=== PATIENT | female | born 1980 | race African-American/Black ===

== ENCOUNTER 2017-01-25 09:30 | Emergency (ER) | payer OTHER ==
[~2017-01-25] VITALS: Ht 165.1 cm; Wt 70.0 kg
[2017-01-25 09:38] VITALS: Ht 165.1 cm; Wt 70.0 kg
[2017-01-25 11:15] VITALS: BP 113/62; PULSE 97; RESP 19; TEMP 98.3
--- NOTE | 2017-01-25 11:24 | ERD ---
ER Documentation Chief Complaint Chief Complaint BIB RA FOR EVAL OF DRUGH USE COCAINE. STATES "FEELS WEIRD" HPI This is a 36-year-old female with a known history of schizophrenia that presents to the emergency department stating she feels very anxious and "weird" after using cocaine. She stated she snorted the cocaine and uses this on a regular basis but felt that this was "a bad batch." Of cocaine. She denies any auditory tactile visual hallucinations. She denies any suicidal homicidal thoughts or ideation. She states she would like to speak to a social security assessor for drug rehabilitation. She denies a headache. She denies any chest pain or pressure that radiates to the neck arm back or jaw. She denied any hemoptysis hematemesis or melanotic stools and has no shortness of breath at rest or exertion ROS All systems reviewed and are negative except as per history of present illness. PMhx/Soc Hx Miscellaneous Medical Probl: Yes (HIV + COCAINE USE) Hx Alcohol Use: Yes Hx Substance Use: Yes (COCAINE) Hx Tobacco Use: Yes Smoking Status: Current every day smoker Physical Exam Vitals Vital Signs Date Time Temp Pulse Resp B/P Pulse Ox O2 Delivery O2 Flow Rate FiO2 01/25/17 11:15 98.3 97 19 113/62 100 Room Air 01/25/17 09:38 97.9 102 18 124/84 99 Physical Exam Constitutional:Well-developed. Well-nourished. HEENT:Normocephalic. Atraumatic.Pupils were 3millimeters equal round reactive to light. Moist mucous membranes.No tonsillar exudates. Neck: No nuchal rigidity. No lymphadenopathy. No posterior cervical spine tenderness or step-offs. Respiratory: Not using accessory muscles of respiration.Lungs were clear to auscultation bilaterally. No rhonchi. No rales. No wheezing. Cardiovascular: Regular rate regular rhythm.No murmurs. No rubs were appreciated.S1, S2 normal. Distal pulses are palpable 2+ bilaterally. GI: Abdomen was soft. Nontender. Non Distended. No pulsatile abdominal masses or bruits. No rebound. No guarding. Bowel sounds were present and normal. Muscle skeletal: Full range of motion of both the upper and lower extremities bilaterally.Normal muscle tone.No assymetrical calf tenderness or swelling. Skin: No petechia, no purpura. No lesions on the palms or the soles of the feet. No maculopapular rash. NEURO: Patient was alert, awake, orientated x3.No facial droop. Gait observed and normal with no ataxia.Speech had regular rate and rhythm. No focal neurological deficits. Patient spoke very rapidly but denied any suicidal or homicidal thoughts or ideations. No auditory tactile or visual hallucinations Result Diagram: 01/25/17 0950 01/25/17 0950 Results 24 hrs Laboratory Tests Test 01/25/17 09:00 01/25/17 09:50 Serum HCG, Qualitative NEGATIVE White Blood Count 4.510^3/ul Red Blood Count 4.7310^6/ul Hemoglobin 14.1g/dl Hematocrit 40.4% Mean Corpuscular Volume 85.4fl Mean Corpuscular Hemoglobin 29.8pg Mean Corpuscular Hemoglobin Concent 34.9g/dl Red Cell Distribution Width 14.0% Platelet Count 05505^3/UL Mean Platelet Volume 9.8fl Neutrophils % 56.4% Lymphocytes % 30.0% Monocytes % 12.1% Eosinophils % 0.4% Basophils % 0.9% Nucleated Red Blood Cells % 0.0/100WBC Neutrophils # 2.510^3/ul Lymphocytes # 1.310^3/ul Monocytes # 0.510^3/ul Eosinophils # 0.010^3/ul Basophils # 0.010^3/ul Nucleated Red Blood Cells # 0.010^3/ul Sodium Level 145mmol/L Potassium Level 4.1mmol/L Chloride Level 107mmol/L Carbon Dioxide Level 25mmol/L Anion Gap 17 Blood Urea Nitrogen 9mg/dl Creatinine 1.01mg/dl Glucose Level 102mg/dl Calcium Level 9.8mg/dl Total Bilirubin 1.0mg/dl Direct Bilirubin 0.00mg/dl Indirect Bilirubin 1.0mg/dl Aspartate Amino Transf (AST/SGOT) 22IU/L Alanine Aminotransferase (ALT/SGPT) 58IU/L Alkaline Phosphatase 96IU/L Total Protein 8.4g/dl Albumin 4.7g/dl Globulin 3.70g/dl Albumin/Globulin Ratio 1.27 Salicylates Level < 1.0mg/dl Acetaminophen Level < 10.0ug/ml Ethyl Alcohol Level < 10.0mg/dl Procedures/MDM This patient presented to the emergency department with recent cocaine use and my differential diagnosis included but was not limited to ruling out life threatening causes of acute psychosis such as Wernickes encephalopathy, hypoxia , hypoglycemia, hypertensive encephalopathy, intracerebral hemorrhage, meningitis, poisoning. The patient spoke very rapidly and appeared and have tangential thinking that could be resolved of acute psychosis however I felt her symptoms were likely exacerbated by the recent cocaine use and the patient did not appear to be a threat to herself or others. She was seen by her social security assessor and given resources for outpatient drug rehabilitation facilities. She states she did not want to stay in the hospital and was given a bus token and instructed that she can return to the emergency department at any time if there is worsening of her symptoms. The patient was discharged home in fair condition. They were instructed to return to the emergency department at any time if there was any worsening of their condition. The patient stated they would follow up with their PCP in the next 24-48 hours to initiate a suitable medication regimen under the care of their PCP as well as to allow their PCP to monitor any drug reactions. The patient was discharged home with prescriptions after they gave informed consent to the new medication. They were also fully informed by myself on the adverse effects and adverse drug interactions in order to provide adequate safeguards to prevent possible adverse reactions to medications. Departure Diagnosis: Primary Impression: Cocaine abuse Condition: Fair Patient Instructions: Cocaine: Understanding Its Effects RACHEL OCONNOR Jan 25, 2017 11:24
== END 2017-01-25 12:00 | disposition home or self-care (01) ==
LOC: E/R 09:30
DX: F14.10 Cocaine abuse, uncomplicated (principal); F17.210 Nicotine dependence, cigarettes, uncomplicated
CPT/HCPCS: 80053; 80306; 84703; 85025; 99283

== ENCOUNTER 2017-01-25 13:01 | Emergency (ER) | payer OTHER ==
[~2017-01-25] VITALS: Ht 167.6 cm; Wt 77.2 kg
[2017-01-25 13:04] VITALS: Ht 167.6 cm; Wt 77.2 kg
--- NOTE | 2017-01-25 14:22 | ERD ---
ER Documentation Chief Complaint Chief Complaint Patient states she has suicidal thoughts today HPI This is a 36-year-old female who is here for suicidal ideation. The patient was seen here this morning and given a bus token to be sent downtown for a outpatient psych center the patient return. The patient states she has been using crack cocaine at a high level over the past month. She says is been worse over the past week. The patient says that she is off her medications, Seroquel and Zoloft. The patient states that she is here because she is suicidal she is a threat to herself and others she states. She states that she will cut her wrist. She says that she is not homicidal grossly but says that she is hearing voices that are telling her that she has done things to other people and "given them things" that has caused other people to . She denies any physical complaints such as chest pain shortness of breath. The patient had labs this morning, CBC which was normal, CMP which was normal, acetaminophen alcohol and aspirin levels are normal. ROS All systems reviewed and are negative except as per history of present illness. Allergies Allergies: Coded Allergies: No Known Allergy (Unverified , 01/25/17) PMhx/Soc Hx Miscellaneous Medical Probl: Yes (HIV + COCAINE USE) Hx Alcohol Use: Yes Hx Substance Use: Yes (COCAINE) Hx Tobacco Use: Yes FmHx Family History: No coronary disease Physical Exam Vitals Vital Signs Date Time Temp Pulse Resp B/P Pulse Ox O2 Delivery O2 Flow Rate FiO2 01/25/17 13:04 98.7 111 20 149/78 97 Physical Exam Const: Well-developed, well-nourished Head: Atraumatic, normocephalic Eyes: Normal Conjunctiva, PERRLA, EOMI, normal sclera, no nystagmus ENT: Normal External Ears, Nose and Mouth, moist mucus membranes. Neck: Full range of motion. No meningismus, no lymphadenopathy. Resp: Clear to auscultation bilaterally, no wheezing, rhonchi, rales Cardio: Regular rate and rhythm, no murmurs, S1 S2 present Abd: Soft, non tender x 4, non distended. Normal bowel sounds, no guarding or rebound, no pulsitile abdominal masses or bruits Skin: No petechiae or rashes, no ecchymosis , no maculopapular rash Back: No midline or flank tenderness Ext: No cyanosis, or edema, FROM x 4, normal inspection, neurovascularly intact x 4 Neur: Awake and alert, STR 5/5 x 4, sensation intact x 4, no focal findings, cerebellum intact Psych: Admits to suicidal thoughts Procedures/MDM We will add a urine drug screen. We will have psych evaluate her for admission to inpatient facility for threat to self Departure Diagnosis: Primary Impression: Suicidal ideation Condition: Stable CAROLA WADE DO Jan 25, 2017 14:22
--- NOTE | 2017-01-25 15:28 | PSY ---
Date/Time of Note Date/Time of Note DATE: 01/25/17 TIME: 18:25 Psychiatric Subjective Eval Consent Pt consented to telemedicine: Yes Subjective Evaluation Patient location: emergency Chief Complaint: Patient states she has suicidal thoughts today History of present illness HPI: The patient is a 36 yo female with ho psycohsis, depression, cocaine abuse , discharged from [facility] yesterday, today presented with AH, SI, and cocaine use. she denies si to this MD but had reported it to nursing staff. Reports that the AH are becoming persistent and distressing and he is using cocaine heavily. Past Psych Hx: ho past admits and suicide attempts, non adherent with meds PMHx: DM per her Meds: not taking All: denies MSE: somewhat uncooperative, evasive, disorganized, irritable, no delusions + AH deneis si to this MD IMP: 36 yo female with psychosis, cocaine use, SI -vol admit for acute risk to self -for moderate agitation zyprexa 5mg po prn for severe agitation haldol 5mg im ativan 2mg im cogentin 1mg im prn Medical history Problems Medical Problems: (1) Cocaine abuse Status: Acute (2) Suicidal ideation Status: Acute Allergies: Coded Allergies: No Known Allergy (Unverified , 01/25/17) Psychiatric Objective Eval Mental Status Examination: Laboratory Results Laboratory Tests Test 01/25/17 14:00 Urine Opiates Screen Negative Urine Barbiturates Negative Urine Amphetamines Screen Negative Urine Benzodiazepines Screen Negative Urine Cocaine Screen Positive Urine Cannabinoids Negative SHIV HEDRICK Jan 25, 2017 15:28
[2017-01-26 08:15] VITALS: BP 136/85; PULSE 89; RESP 20; TEMP 98.5
== END 2017-01-26 08:19 ==
LOC: E/R 13:01
DX: R45.851 Suicidal ideations (principal); R40.2142 Coma scale, eyes open, spontaneous, at arrival to emergency department; R40.2252 Coma scale, best verbal response, oriented, at arrival to emergency department; R40.2362 Coma scale, best motor response, obeys commands, at arrival to emergency department; Z87.891 Personal history of nicotine dependence
CPT/HCPCS: 80307